=== PATIENT | female | born 1940 | race Caucasian/White ===

== ENCOUNTER → 2016-10-16 | Outpatient (CLI) | payer MEDICARE | LOC: RAD 07:59 | PROVIDERS: ATTEND Physician Assistant | DX: R10.84 Generalized abdominal pain (principal); N28.1 Cyst of kidney, acquired | CPT/HCPCS: 76700; 93976 ==

== ENCOUNTER → 2017-02-04 | Outpatient (CLI) | payer MEDICARE ==
--- NOTE | 2017-02-04 17:06 | WOMENS IMAGING REPORT ---
EXAM DESCRIPTION: BILAT SCREENING MAMMO W/CAD COMPLETED DATE/TIME: 02/04/2017 2:57 pm REASON FOR STUDY: ROUTINE SCREENING; Z12.31 Z12.31 ENCNTR SCREEN MAMMOGRAM FOR MALIGNANT NEOPLASM O F CONSTANTINO COMPARISON: None. TECHNIQUE: Standard craniocaudal and mediolateral oblique views of each breast recorded using digita l acquisition. LIMITATIONS: None. FINDINGS: RIGHT BREAST MASSES: In the deep central right breast, 12 cm from the nipple laterally, a subcentimeter mammograph ic nodule is present for which cone compression views and ultrasound are recommended for followup. CALCIFICATIONS: No new or suspicious calcifications. ARCHITECTURAL DISTORTION: None. DEVELOPING DENSITY: None. ASYMMETRY: None noted. OTHER: No other significant findings. LEFT BREAST MASSES: No suspicious masses. CALCIFICATIONS: No new or suspicious calcifications. ARCHITECTURAL DISTORTION: None. DEVELOPING DENSITY: None. ASYMMETRY: None noted. OTHER: Post therapeutic changes with skin thickening left breast from post radiation change Read with the assistance of CAD. .[facility] - R2 Cenova Version 1.3 .[facility] - R2 Cenova Version 1.3 .[facility] - R2 Cenova Version 2.4 .[facility] - R2 Cenova Version 2.4 .[facility] - R2 Learning Operations Specialist Version 9.2 IMPRESSION: Small well-circumscribed nodule deep right breast for which additional mammographic view s and ultrasound recommended BREAST DENSITY: b. There are scattered areas of fibroglandular density. BIRAD: 0 Incomplete: Needs Additional Imaging Evaluation and/or prior Mammograms for Comparison. RECOMMENDATION: RECOMMENDED FOLLOW-UP: Right breast diagnostic mammograms and ultrasound The patient will be contacted for additional imaging. COMMENT: The patient has been notified of the results by letter per [place] requirements. Additional no tification policies are in place for contacting patient with suspicious or incomplete findings. Quality ID #[id number]: The [employer] recommends an annual screening mammogram for women aged 40 years or over. This facility utilizes a reminder system to ensure that all patients receive reminder letters, and/or direct phone calls for appointments. This includes reminders for routine scr eening mammograms, diagnostic mammograms, or other Breast Imaging Interventions when appropriate. Th is patient will be placed in the appropriate reminder system. The [employer] (ACR) has developed recommendations for screening MRI of the breast s in certain patient populations, to be used in conjunction with mammography. Breast MRI surveillanc e may be appropriate for women with more than 20% lifetime risk of developing breast cancer as deter mined by genetic testing, significant family history of the disease, or history of mantle radiation f or Hodgkins Disease. ACR Practice Guidelines 2008. TECHNICAL DOCUMENTATION: FINDING NUMBER: (1) ASSESSMENT: (1) JOB ID: [id number] [employer]- All Rights Reserved
== END ==
LOC: WI 11:09
PROVIDERS: ATTEND Family Medicine
DX: Z12.31 Encounter for screening mammogram for malignant neoplasm of breast (principal)
CPT/HCPCS: 77067; G0202

== ENCOUNTER 2017-02-24 10:27 | Emergency (ER) | payer MEDICARE ==
--- NOTE | 2017-02-24 10:42 | ER Document Report ---
ED Medical Screen (RME) - General Chief Complaint: Nausea/Vomiting/Diarrhea Stated Complaint: ABDOMINAL PAIN Time Seen by Provider: 02/24/17 10:39 Notes: Patient states that for the last 9 days she has had severe diarrhea. She states for approximately the last 2 years she has had frequent intermittent bouts of diarrhea that she has had to treat with Imodium. She states currently she does not have any Imodium. She states that her family doctor has referred her to a logistics analytics manager. She states the logistics analytics manager wanted to do a colonoscopy but she has not had the money to have it done. Patient states that her stool has also been all-black but she has not seen any blood. She states she does not take Pepto-Bismol. She states that she has been taking iron pills for "years". He states the iron pills have never made her stool looked black. Patient denies any recent antibiotics. Patient denies having a previous cholecystectomy. She is only had radiation on her left breast. She does have a history of uterine cancer approximately 30 years ago for which she had a hysterectomy. TRAVEL OUTSIDE OF THE [place] IN LAST 30 DAYS: No - Related Data Allergies/Adverse Reactions: pentazocine lactate [From [employer]] Allergy (Verified 04/17/14 12:03) dizzy Past Medical History - Past Medical History Cardiac Medical History: Reports: Hx Atrial Fibrillation, Hx Congestive Heart Failure, Hx Hypercholesterolemia, Hx Hypertension Pulmonary Medical History: Reports: Hx Bronchitis, Hx COPD Endocrine Medical History: Reports: Hx Diabetes Mellitus Type 2 Renal/ Medical History: Denies: Hx Peritoneal Dialysis Psychiatric Medical History: Reports: Hx Depression Past Surgical History: Reports: Hx Abdominal Surgery - bladder, Hx Hysterectomy , Hx Tonsillectomy - adenoids - Immunizations Hx Diphtheria, Pertussis, Tetanus Vaccination: Yes
[2017-02-24 11:25] LABS: APPEARANCE,URINE SLIGHTLY-CLOUDY; BILIRUBIN,URINE NEGATIVE (NEGATIVE); GLUCOSE, URINE NEGATIVE (NEGATIVE); KETONES,URINE NEGATIVE (NEGATIVE); LEUKOCYTE ESTERASE,URINE SMALL (NEGATIVE); NITRITE,URINE NEGATIVE (NEGATIVE); PROTEIN,URINE NEGATIVE (NEGATIVE); URINE SPECIFIC GRAVITY 1.026; UROBILINOGEN,URINE NEGATIVE mg/dL (<2.0)
[2017-02-24 11:34] LABS: ALANINE AMINOTRANSFERASE 25 U/L (9-52); ALBUMIN 3.6 g/dL (3.5-5.0); ALKALINE PHOSPHATASE 120 U/L (38-126); ANION GAP 10 (5-19); ASPARTATE AMINO TRANSFERASE 24 U/L (14-36); BILIRUBIN,DIRECT 0.3 mg/dL (0.0-0.4); BILIRUBIN,TOTAL 0.5 mg/dL (0.2-1.3); BLOOD UREA NITROGEN 12 mg/dL (7-20); CALCIUM 9.3 mg/dL (8.4-10.2); CARBON DIOXIDE 25 mmol/L (22-30); CHLORIDE 107 mmol/L (98-107); CREATININE RESULT 0.86 mg/dL (0.52-1.25); GLUCOSE 101 mg/dL (75-110); MAGNESIUM 1.8 mg/dL (1.6-2.3); POTASSIUM 4.7 mmol/L (3.6-5.0); SODIUM 142.4 mmol/L (137-145); TOTAL PROTEIN 6.4 g/dL (6.3-8.2)
[2017-02-24 13:33] LABS: ABSOLUTE EOSINOPHILS # (AUTO) 0.2 10^3/uL (0.0-0.6); ABSOLUTE LYMPHOCYTES (AUTO) 0.9 10^3/uL (0.5-4.7); ABSOLUTE MONOCYTES (AUTO) 0.3 10^3/uL (0.1-1.4); ABSOLUTE NEUT (AUTO) 3.3 10^3/uL (1.7-8.2); BASOPHILS % (AUTO) 0.9 % (0-2); EOSINOPHILS % (AUTO) 3.8 % (0-6); HEMATOCRIT 36.3 % (36.0-47.0); HEMOGLOBIN 12.3 g/dL (12.0-15.5); HGB HCT DIFFERENCE 0.6; LYMPHOCYTES % (AUTO) 19.1 % (13-45); MEAN CORPUSCULAR HEMOGLOBIN 31.9 pg (27.0-33.4); MEAN CORPUSCULAR HGB CONC 33.9 g/dL (32.0-36.0); MEAN CORPUSCULAR VOLUME 94 fl (80-97); MONOCYTES % (AUTO) 6.9 % (3-13); RED BLOOD COUNT 3.86 10^6/uL (3.72-5.28); RED CELL DISTRIBUTION WIDTH 16.3 % (11.5-14.0); SEGMENTED NEUTROPHILS % (AUTO) 69.3 % (42-78); WHITE BLOOD COUNT 4.8 10^3/uL (4.0-10.5)
--- NOTE | 2017-02-24 15:04 | ER Document Report ---
ED GI/ - General Chief Complaint: Nausea/Vomiting/Diarrhea Stated Complaint: ABDOMINAL PAIN Time Seen by Provider: 02/24/17 10:39 Notes: Patient is here because she has been experiencing diarrhea for the past 9 days. She is actually had episodes of diarrhea dating back into last fall, 7 or 8 months ago. Her diarrhea is about 4-5 times a day. No blood has been seen. Does not have any significant abdominal pains. She has noticed some black stools since yesterday. Not taking Pepto-Bismol. Is taking iron, but has not changed the dose or take an extra of the latter. Denies nausea or vomiting. Has not had any fever. Told she had a duodenal ulcer in the past. 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 Patient has seen her primary care provider, Dr. Maher, who has referred her to a electronic installer, but the patient cannot afford the $300 co-pay so she has not seen them to get her colonoscopy done. TRAVEL OUTSIDE OF THE [place] IN LAST 30 DAYS: No - HPI Patient complains to provider of: No: Abdominal pain - Related Data Allergies/Adverse Reactions: pentazocine lactate [From [employer]] Allergy (Verified 02/24/17 10:58) dizzy Past Medical History - Social History Smoking Status: Never Smoker Chew tobacco use (# tins/day): No Frequency of alcohol use: Recovering alcoholic since 1984 Drug Abuse: None Family History: Reviewed & Not Pertinent Patient has suicidal ideation: No Patient has homicidal ideation: No - Past Medical History Cardiac Medical History: Reports: Hx Atrial Fibrillation, Hx Congestive Heart Failure, Hx Hypercholesterolemia, Hx Hypertension Pulmonary Medical History: Reports: Hx Bronchitis, Hx COPD, Other - History of pulmonary embolism for over 5 years ago, treated with warfarin, which has been discontinued. Endocrine Medical History: Reports: Hx Diabetes Mellitus Type 2 GI Medical History: Reports: Hx Ulcer Psychiatric Medical History: Reports: Hx Depression Past Surgical History: Reports: Hx Abdominal Surgery - bladder, Hx Hysterectomy , Hx Tonsillectomy - adenoids - Immunizations Hx Diphtheria, Pertussis, Tetanus Vaccination: Yes Hx Pneumococcal Vaccination: 05/27/15 Review of Systems - Review of Systems Notes: REVIEW OF SYSTEMS: CONSTITUTIONAL : Denies fever. EENT: Denies eye, ear, nose or mouth or throat pain or other symptoms. CARDIOVASCULAR: Denies chest pain. RESPIRATORY: Denies cough, chest congestion, some shortness of breath. GASTROINTESTINAL: Denies abdominal pain or nausea, vomiting. See HPI. GENITOURINARY: Denies difficulty or painful urinating, urinary frequency, blood in urine. MUSCULOSKELETAL: Denies back or neck pain. Denies joint pain or swelling. SKIN: Denies rash or skin lesions. NEUROLOGICAL: Denies LOC or altered mental status. Denies headache. Denies sensory loss or motor deficits. ALL OTHER SYSTEMS REVIEWED AND NEGATIVE. Physical Exam - Vital signs Vitals: Temp Pulse Resp BP Pulse Ox 98.0 F 66 18 124/89 H 96 02/24/17 10:31 02/24/17 10:31 02/24/17 10:02/24/17 10:02/24/17 10:31 Interpretation: Normal. No: Febrile - Notes Notes: PHYSICAL EXAMINATION: GENERAL: Well-appearing, in no acute distress. Anxious. Vital signs are all normal. HEAD: Atraumatic, normocephalic. NECK: Normal range of motion, supple. LUNGS: Breath sounds clear and equal bilaterally. HEART: Regular rate and rhythm without murmurs. ABDOMEN: Soft, nontender. No guarding or rebound. Rectal exam performed, no lesions felt. No hemorrhoids seen. Stool is yellow in color. No masses felt. BACK: No tenderness throughout entire back. EXTREMITIES: Normal range of motion without pain. NEUROLOGICAL: Normal speech, normal gait. Normal sensory, motor, and reflex exams. Awake, alert, and oriented x3. Cranial nerves normal. PSYCH: Normal mood, normal affect. SKIN: Warm, dry, no rashes. Course - Re-evaluation Re-evalutation: 02/24/17 15:37 Patient was unable to obtain a diarrhea stool specimen for us and after a several hour wait, wish to be discharged. While here, the patient's daughter has made her an appointment to be seen for her Endoscope procedures in early March. - Vital Signs Vital signs: Temp Pulse Resp BP Pulse Ox 98.0 F 66 18 124/89 H 96 02/24/17 10:31 02/24/17 10:31 02/24/17 10:31 02/24/17 10:31 02/24/17 10:31 - Laboratory Result Diagrams: 02/24/17 13:22 02/24/17 10:58 Laboratory results interpreted by me: 02/24/17 02/24/17 10:58 13:22 RDW 16.3 H Ur Leukocyte Esterase SMALL H 02/24/17 15:37 Lab work all essentially normal. Discharge - Discharge Clinical Impression: Diarrhea Condition: Stable Disposition: HOME, SELF-CARE Additional Instructions: DIARRHEA, NON-SPECIFIC: Diarrhea means frequent, watery stools. There are many causes. Any problem that keeps the intestinal tract from absorbing water from the stool can lead to diarrhea. A sudden new diarrhea problem is usually caused by a virus, food sensitivity, toxic bacteria, or drugs. In this case, we expect the problem to go away soon. Testing is done only if you seem seriously ill from the diarrhea. If you have chronic diarrhea, or diarrhea that keeps coming back, we need to find out why. Chronic diarrhea can be due to inflammation of the bowels such as Crohn's disease or ulcerative colitis, food sensitivity such as intolerance to lactose or wheat protein, irritable bowel syndrome, and other problems. If your diarrhea is a significant problem but it's not clear why you have it, we' ll refer you to a specialist for further testing. During an episode of diarrhea, drink small amounts (two to six ounces) of clear liquids (soft drinks, sport drinks, herb teas, broth, etc). Take fluids frequently to prevent dehydration. It's usually not a problem to take mild anti- diarrhea medication such as Kaopectate or Pepto-Bismol. As the diarrhea eases, advance to small amounts of bland food (mashed potato, toast) for 24 hours. Call the physician if blood appears in your vomit or stool, if vomiting lasts longer than 24 hours, if the abdominal pain worsens or becomes localized to one area, if you develop high fever, or if you become lightheaded and weak. NORMAL EXAM AND WORKUP: At this time, your examination and workup show no significant abnormality. No significant abnormal physical findings were noted. All laboratory, EKG, and imaging (x-ray, CT scans, ultrasound) studies that were ordered show no significant abnormality. Although your examination and all studies that were ordered showed no significant abnormal finding, there are no examinations and no studies that are 100% accurate. There is always the possibility that some abnormality could exist and not be detected with physical examination or within the limits and capabilities of laboratory and other studies. You should return or follow up as you were instructed on your visit today for further evaluation if your symptoms do not resolve. You should follow-up with the electronic installer or your primary care physician for further care. FOLLOW-UP CARE: If you have been referred to a physician for follow-up care, call the physician s office for an appointment as you were instructed or within the next two days. If you experience worsening or a significant change in your symptoms, notify the physician immediately or return to the Emergency Department at any time for re-evaluation. Referrals: DAVID MAHER MD [Primary Care Provider] - Follow up as needed
[2017-02-24 15:31] VITALS: BP 125/53
== END 2017-02-24 15:31 | disposition home or self-care (01) ==
LOC: ER 10:27
DX: R19.7 Diarrhea, unspecified (principal); R19.5 Other fecal abnormalities; E11.9 Type 2 diabetes mellitus without complications; I10 Essential (primary) hypertension; J44.9 Chronic obstructive pulmonary disease, unspecified; Z79.899 Other long term (current) drug therapy; Z87.11 Personal history of peptic ulcer disease; Z87.19 Personal history of other diseases of the digestive system; Z59.9 Problem related to housing and economic circumstances, unspecified
CPT/HCPCS: 36415; 80053; 81001; 82272; 83735; 85025; 99284

== ENCOUNTER → 2017-03-18 | Outpatient (CLI) | payer MEDICARE ==
--- NOTE | 2017-03-19 08:19 | WOMENS IMAGING REPORT ---
EXAM DESCRIPTION: RIGHT DIAGNOSTIC MAMMO W/CAD; U/S BREAST UNILAT LIMITED COMPLETED DATE/TIME: 03/18/2017 11:13 am; 03/18/2017 12:40 pm REASON FOR STUDY: LUMP IN BREAST; N63; RT BREAST NODULAR DENSITY N63 N63 UNSPECIFIED LUMP IN BREAST COMPARISON: 02/04/2017 bilateral screening mammograms TECHNIQUE: Cone compression craniocaudal and mediolateral oblique images of the breast recorded with digital acquisition. Right whole breast 90 mediolateral views. Right breast ultrasound was also p erformed. LIMITATIONS: None. FINDINGS: BREAST: right MASSES: In the deep right breast laterally, near the chest wall, a well-circumscribed hypoechoic 6 mm nodule is present. No architectural distortion or associated calcifications. CALCIFICATIONS: No new or suspicious calcifications. ARCHITECTURAL DISTORTION: None. DEVELOPING DENSITY: None. ASYMMETRY: None noted. OTHER: No other significant findings. Read with the assistance of CAD. .[facility] - R2 Cenova Version 1.3 .[facility] - R2 Cenova Version 1.3 .[facility] - R2 Cenova Version 2.4 .[facility] [place] - R2 Cenova Version 2.4 .[facility] - R2 Welt Drawer Version 9.2 Right breast ultrasound: Ultrasound of the right breast far laterally demonstrates a hypoechoic well-circumscribed small cyst or fibroadenoma, about 6 mm in diameter. This correlates with the mammographic findings and is a pro bably benign finding. No old mammograms are available for comparison. Six-month follow-up mammogram s and ultrasound recommended. IMPRESSION: Probably benign 6 mm cyst or fibroadenoma and deep right breast laterally near the chest wall, for which six-month follow-up right breast diagnostic mammograms and ultrasound are recommende d BREAST DENSITY: a. The breasts are almost entirely fatty. BIRAD: 3 Probably benign finding. Initial short-interval follow-up suggested. RECOMMENDATION: RECOMMENDED FOLLOW UP: Six-month follow-up right breast diagnostic mammograms and ul trasound recommended SPECIFIC INTERVENTION/IMAGING/CONSULTATION RECOMMENDED:Six-month follow-up right breast diagnostic ma mmograms and ultrasound recommended COMMUNICATION:Patient notified by letter COMMENT: The patient has been notified of the results by letter per MQSA requirements. Additional no tification policies are in place for contacting patient with suspicious or incomplete findings. Quality ID #[id number]: The [employer] recommends an annual screening mammogram for women aged 40 years or over. This facility utilizes a reminder system to ensure that all patients receive reminder letters, and/or direct phone calls for appointments. This includes reminders for routine scr eening mammograms, diagnostic mammograms, or other Breast Imaging Interventions when appropriate. Th is patient will be placed in the appropriate reminder system. The [employer] (ACR) has developed recommendations for screening MRI of the breast s in certain patient populations, to be used in conjunction with mammography. Breast MRI surveillanc e may be appropriate for women with more than 20% lifetime risk of developing breast cancer as deter mined by genetic testing, significant family history of the disease, or history of mantle radiation f or Hodgkins Disease. ACR Practice Guidelines 2008. TECHNICAL DOCUMENTATION: FINDING NUMBER: (1) ASSESSMENT: (1) JOB ID: [id number] [employer]- All Rights Reserved
--- NOTE | 2017-03-23 12:23 | WOMENS IMAGING REPORT ---
EXAM DESCRIPTION: RIGHT DIAGNOSTIC MAMMO W/CAD; U/S BREAST UNILAT LIMITED COMPLETED DATE/TIME: 03/18/2017 11:13 am; 03/18/2017 12:40 pm REASON FOR STUDY: LUMP IN BREAST; N63; RT BREAST NODULAR DENSITY N63 N63 UNSPECIFIED LUMP IN BREAST COMPARISON: 02/04/2017 bilateral screening mammograms TECHNIQUE: Cone compression craniocaudal and mediolateral oblique images of the breast recorded with digital acquisition. Right whole breast 90 mediolateral views. Right breast ultrasound was also p erformed. LIMITATIONS: None. FINDINGS: BREAST: right MASSES: In the deep right breast laterally, near the chest wall, a well-circumscribed hypoechoic 6 mm nodule is present. No architectural distortion or associated calcifications. CALCIFICATIONS: No new or suspicious calcifications. ARCHITECTURAL DISTORTION: None. DEVELOPING DENSITY: None. ASYMMETRY: None noted. OTHER: No other significant findings. Read with the assistance of CAD. .[facility] - R2 Cenova Version 1.3 .[facility] - R2 Cenova Version 1.3 .[facility] - R2 Cenova Version 2.4 .[facility] - R2 Cenova Version 2.4 .[facility] - R2 Dehydrogenation Operator Head Version 9.2 Right breast ultrasound: Ultrasound of the right breast far laterally demonstrates a hypoechoic well-circumscribed small cyst or fibroadenoma, about 6 mm in diameter. This correlates with the mammographic findings and is a pro bably benign finding. No old mammograms are available for comparison. Six-month follow-up mammogram s and ultrasound recommended. IMPRESSION: Probably benign 6 mm cyst or fibroadenoma and deep right breast laterally near the chest wall, for which six-month follow-up right breast diagnostic mammograms and ultrasound are recommende d BREAST DENSITY: a. The breasts are almost entirely fatty. BIRAD: 3 Probably benign finding. Initial short-interval follow-up suggested. RECOMMENDATION: RECOMMENDED FOLLOW UP: Six-month follow-up right breast diagnostic mammograms and ul trasound recommended SPECIFIC INTERVENTION/IMAGING/CONSULTATION RECOMMENDED:Six-month follow-up right breast diagnostic ma mmograms and ultrasound recommended COMMUNICATION:Patient notified by letter COMMENT: The patient has been notified of the results by letter per MQSA requirements. Additional no tification policies are in place for contacting patient with suspicious or incomplete findings. Quality ID #[id number]: The [employer] recommends an annual screening mammogram for women aged 40 years or over. This facility utilizes a reminder system to ensure that all patients receive reminder letters, and/or direct phone calls for appointments. This includes reminders for routine scr eening mammograms, diagnostic mammograms, or other Breast Imaging Interventions when appropriate. Th is patient will be placed in the appropriate reminder system. The [employer] (ACR) has developed recommendations for screening MRI of the breast s in certain patient populations, to be used in conjunction with mammography. Breast MRI surveillanc e may be appropriate for women with more than 20% lifetime risk of developing breast cancer as deter mined by genetic testing, significant family history of the disease, or history of mantle radiation f or Hodgkins Disease. ACR Practice Guidelines 2008. TECHNICAL DOCUMENTATION: FINDING NUMBER: (1) ASSESSMENT: (1) JOB ID: [id number] [employer]- All Rights Reserved
== END ==
LOC: WI 10:59
PROVIDERS: ATTEND Family Medicine
DX: N63 Unspecified lump in breast (principal)
CPT/HCPCS: 76642; G0206

== ENCOUNTER → 2017-09-22 | Outpatient (CLI) | payer MEDICARE ==
--- NOTE | 2017-09-23 18:18 | WOMENS IMAGING REPORT ---
EXAM DESCRIPTION: RIGHT DIAGNOSTIC MAMMO W/CAD; U/S BREAST UNILAT LIMITED COMPLETED DATE/TIME: 09/22/2017 9:44 am; 09/22/2017 9:55 am REASON FOR STUDY: UNSPECIFED LUMP IN R BREAST; N63.31; RT BREAST FOLLOW-UP; N63.31 N63.31 COMPARISON: Diagnostic mammograms and ultrasound 03/18/2017 Screening mammograms 02/04/2017 TECHNIQUE: Standard craniocaudal and mediolateral oblique images of the breast recorded with digital acquisition. Additional right breast cone compression views in the CC and MLO orientations. Additional right breast ultrasound LIMITATIONS: None. FINDINGS: BREAST: Right MASSES: Small well-circumscribed low-density nodule 9 o'clock position right breast measuring about 8 mm in diameter. CALCIFICATIONS: No new or suspicious calcifications. ARCHITECTURAL DISTORTION: None. DEVELOPING DENSITY: None. ASYMMETRY: None noted. OTHER: No other significant findings. Read with the assistance of CAD. .[facility] - R2 Cenova Version 1.3 .[facility] - R2 Cenova Version 1.3 .[facility] - R2 Cenova Version 2.4 .[facility] - R2 Cenova Version 2.4 .[facility] - R2 Coffee Farmer Version 9.2 Right breast ultrasound: Ultrasound of the right lateral breast demonstrates a well-circumscribed hypoechoic nodule in the kumar p 9 to 10 o'clock position measuring about 8 to 9 mm in greatest diameter. This very deep, and just ventral to the pectoralis muscle at ultrasound. This is slightly larger than in February 2017. Ultras ound-guided core biopsy, with post biopsy clip placement and follow-up two-view mammogram is recommen ded. IMPRESSION: Increase in size of small nodule in the right deep breast 9 to 10 o'clock position since 03/18/2017. Ultrasound-guided core biopsy with post biopsy clip placement and follow-up two-view billie mogram recommended. BREAST DENSITY: a. The breasts are almost entirely fatty. BIRAD: 4 Suspicious. Biopsy should be considered. RECOMMENDATION: RECOMMENDED FOLLOW UP: Ultrasound-guided right breast biopsy with post biopsy clip p lacement and follow-up two-view mammogram SPECIFIC INTERVENTION/IMAGING/CONSULTATION RECOMMENDED:As above COMMUNICATION:Patient notified by letter. These results were not directly discussed with the patient at the time of service, I was unavailable, doing an invasive procedure COMMENT: The patient has been notified of the results by letter per MQSA requirements. Additional no tification policies are in place for contacting patient with suspicious or incomplete findings. Quality ID #225: The [employer] recommends an annual screening mammogram for women aged 40 years or over. This facility utilizes a reminder system to ensure that all patients receive reminder letters, and/or direct phone calls for appointments. This includes reminders for routine scr eening mammograms, diagnostic mammograms, or other Breast Imaging Interventions when appropriate. Th is patient will be placed in the appropriate reminder system. The [employer] (ACR) has developed recommendations for screening MRI of the breast s in certain patient populations, to be used in conjunction with mammography. Breast MRI surveillanc e may be appropriate for women with more than 20% lifetime risk of developing breast cancer as deter mined by genetic testing, significant family history of the disease, or history of mantle radiation f or Hodgkins Disease. ACR Practice Guidelines 2008. TECHNICAL DOCUMENTATION: FINDING NUMBER: (1) ASSESSMENT: (1) JOB ID: [id number] [employer]- All Rights Reserved Reading location - IP/workstation name: [facility]
--- NOTE | 2017-09-23 18:18 | WOMENS IMAGING REPORT ---
EXAM DESCRIPTION: RIGHT DIAGNOSTIC MAMMO W/CAD; U/S BREAST UNILAT LIMITED COMPLETED DATE/TIME: 09/22/2017 9:44 am; 09/22/2017 9:55 am REASON FOR STUDY: UNSPECIFED LUMP IN R BREAST; N63.31; RT BREAST FOLLOW-UP; N63.31 N63.31 COMPARISON: Diagnostic mammograms and ultrasound 03/18/2017 Screening mammograms 02/04/2017 TECHNIQUE: Standard craniocaudal and mediolateral oblique images of the breast recorded with digital acquisition. Additional right breast cone compression views in the CC and MLO orientations. Additional right breast ultrasound LIMITATIONS: None. FINDINGS: BREAST: Right MASSES: Small well-circumscribed low-density nodule 9 o'clock position right breast measuring about 8 mm in diameter. CALCIFICATIONS: No new or suspicious calcifications. ARCHITECTURAL DISTORTION: None. DEVELOPING DENSITY: None. ASYMMETRY: None noted. OTHER: No other significant findings. Read with the assistance of CAD. .[facility] - R2 Cenova Version 1.3 .[facility] - R2 Cenova Version 1.[address] .[facility] - R2 Cenova Version 2.4 .[facility]2 Cenova Version 2.4 .[facility] - R2 Worm Picker Version 9.2 Right breast ultrasound: Ultrasound of the right lateral breast demonstrates a well-circumscribed hypoechoic nodule in the kumar p 9 to 10 o'clock position measuring about 8 to 9 mm in greatest diameter. This very deep, and just ventral to the pectoralis muscle at ultrasound. This is slightly larger than in February 2017. Ultras ound-guided core biopsy, with post biopsy clip placement and follow-up two-view mammogram is recommen ded. IMPRESSION: Increase in size of small nodule in the right deep breast 9 to 10 o'clock position since 03/18/2017. Ultrasound-guided core biopsy with post biopsy clip placement and follow-up two-view billie mogram recommended. BREAST DENSITY: a. The breasts are almost entirely fatty. BIRAD: 4 Suspicious. Biopsy should be considered. RECOMMENDATION: RECOMMENDED FOLLOW UP: Ultrasound-guided right breast biopsy with post biopsy clip p lacement and follow-up two-view mammogram SPECIFIC INTERVENTION/IMAGING/CONSULTATION RECOMMENDED:As above COMMUNICATION:Patient notified by letter. These results were not directly discussed with the patient at the time of service, I was unavailable, doing an invasive procedure COMMENT: The patient has been notified of the results by letter per MQSA requirements. Additional no tification policies are in place for contacting patient with suspicious or incomplete findings. Quality ID #[id number]: The [employer] recommends an annual screening mammogram for women aged 40 years or over. This facility utilizes a reminder system to ensure that all patients receive reminder letters, and/or direct phone calls for appointments. This includes reminders for routine scr eening mammograms, diagnostic mammograms, or other Breast Imaging Interventions when appropriate. Th is patient will be placed in the appropriate reminder system. The [employer] (ACR) has developed recommendations for screening MRI of the breast s in certain patient populations, to be used in conjunction with mammography. Breast MRI surveillanc e may be appropriate for women with more than 20% lifetime risk of developing breast cancer as deter mined by genetic testing, significant family history of the disease, or history of mantle radiation f or Hodgkins Disease. ACR Practice Guidelines 2008. TECHNICAL DOCUMENTATION: FINDING NUMBER: (1) ASSESSMENT: (1) JOB ID: [id number] [employer]- All Rights Reserved Reading location - IP/workstation name: [facility]
== END ==
LOC: WI 08:27
PROVIDERS: ATTEND Physician Assistant
DX: N63.31 Unspecified lump in axillary tail of the right breast (principal)
CPT/HCPCS: 76642

== ENCOUNTER 2017-09-24 11:44 | Emergency (ER) | payer MEDICARE ==
[2017-09-24 12:00] VITALS: BP 138/61
[2017-09-24] MEDS ORDERED: ASPIRIN 81 MG TABLET, CHEWABLE PO ONE (12:13)
--- NOTE | 2017-09-24 12:18 | ER Document Report ---
ED Medical Screen (RME) - General Chief Complaint: Chest Pain Stated Complaint: CHEST PAIN,NAUSEA Time Seen by Provider: 09/24/17 12:12 Mode of Arrival: Wheelchair Information source: Patient Notes: 77-year-old female history of hypertension congestive heart failure presents with complaints of chest pain 4 day duration associated with shortness of breath pain down the left arm No previous stress test or heart catheterization I have greeted and performed a rapid initial assessment of this patient. A comprehensive ED assessment and evaluation of the patient, analysis of test results and completion of the medical decision making process will be conducted by additional ED providers. PHYSICAL EXAMINATION: GENERAL: Well-appearing, well-nourished and in no acute distress. HEAD: Atraumatic, normocephalic. EYES: Pupils equal round extraocular movements intact, conjunctiva are normal. ENT: Nares patent NECK: Normal range of motion LUNGS: No respiratory distress Musculoskeletal: Normal range of motion NEUROLOGICAL: Normal speech, normal gait. PSYCH: Normal mood, normal affect. SKIN: Warm, Dry, normal turgor, no rashes or lesions noted. TRAVEL OUTSIDE OF THE [place] IN LAST 30 DAYS: No - Related Data Allergies/Adverse Reactions: pentazocine lactate [From [employer]] Allergy (Verified 09/24/17 12:16) dizzy Past Medical History - Social History Frequency of alcohol use: None Drug Abuse: None - Past Medical History Cardiac Medical History: Reports: Hx Atrial Fibrillation, Hx Congestive Heart Failure, Hx Hypercholesterolemia, Hx Hypertension Pulmonary Medical History: Reports: Hx Bronchitis, Hx COPD Endocrine Medical History: Reports: Hx Diabetes Mellitus Type 2 Renal/ Medical History: Denies: Hx Peritoneal Dialysis GI Medical History: Reports: Hx Ulcer Psychiatric Medical History: Reports: Hx Depression Past Surgical History: Reports: Hx Abdominal Surgery - bladder, Hx Hysterectomy , Hx Tonsillectomy - adenoids - Immunizations Hx Diphtheria, Pertussis, Tetanus Vaccination: Yes Physical Exam - Vital signs Vitals: Temp Pulse Resp BP Pulse Ox 98.5 F 66 14 138/61 H 94 09/24/17 11:59 09/24/17 11:59 09/24/17 11:59 09/24/17 11:59 09/24/17 11:59 Course - Vital Signs Vital signs: Temp Pulse Resp BP Pulse Ox 98.5 F 66 14 138/61 H 94 09/24/17 11:59 09/24/17 11:59 09/24/17 11:59 09/24/17 11:59 09/24/17 11:59
[2017-09-24 12:54] LABS: ABSOLUTE EOSINOPHILS # (AUTO) 0.2 10^3/uL (0.0-0.6); ABSOLUTE LYMPHOCYTES (AUTO) 0.8 10^3/uL (0.5-4.7); ABSOLUTE MONOCYTES (AUTO) 0.3 10^3/uL (0.1-1.4); ABSOLUTE NEUT (AUTO) 4.2 10^3/uL (1.7-8.2); BASOPHILS % (AUTO) 0.4 % (0-2); EOSINOPHILS % (AUTO) 3.2 % (0-6); HEMATOCRIT 39.8 % (36.0-47.0); HEMOGLOBIN 13.4 g/dL (12.0-15.5); LYMPHOCYTES % (AUTO) 14.4 % (13-45); MEAN CORPUSCULAR HEMOGLOBIN 32.4 pg (27.0-33.4); MEAN CORPUSCULAR HGB CONC 33.8 g/dL (32.0-36.0); MEAN CORPUSCULAR VOLUME 96 fl (80-97); MONOCYTES % (AUTO) 4.7 % (3-13); PLATELET COUNT 127 10^3/uL (150-450); RED BLOOD COUNT 4.15 10^6/uL (3.72-5.28); RED CELL DISTRIBUTION WIDTH 15.2 % (11.5-14.0); SEGMENTED NEUTROPHILS % (AUTO) 77.3 % (42-78); TOTAL CELLS COUNTED % (AUTO) 100 %; WHITE BLOOD COUNT 5.5 10^3/uL (4.0-10.5)
--- NOTE | 2017-09-24 13:02 | EKG REPORT ---
SEVERITY:- BORDERLINE ECG - SINUS RHYTHM BORDERLINE T ABNORMALITIES, ANTERIOR LEADS : Confirmed by: Sang Iglesias MD 24-Sep-2017 13:01:37
[2017-09-24 13:11] LABS: ALANINE AMINOTRANSFERASE 21 U/L (9-52); ALKALINE PHOSPHATASE 81 U/L (38-126); ANION GAP 10 (5-19); ASPARTATE AMINO TRANSFERASE 29 U/L (14-36); BILIRUBIN,DIRECT 0.4 mg/dL (0.0-0.4); BILIRUBIN,TOTAL 0.6 mg/dL (0.2-1.3); BLOOD UREA NITROGEN 10 mg/dL (7-20); CALCIUM 9.6 mg/dL (8.4-10.2); CARBON DIOXIDE 24 mmol/L (22-30); CHLORIDE 112 mmol/L (98-107); CREATINE KINASE 40 U/L (30-135); GLUCOSE 131 mg/dL (75-110); POTASSIUM 4.2 mmol/L (3.6-5.0); SODIUM 145.5 mmol/L (137-145); TOTAL PROTEIN 6.7 g/dL (6.3-8.2)
--- NOTE | 2017-09-24 13:18 | RADIOLOGY REPORT (SQ) ---
EXAM DESCRIPTION: CHEST SINGLE VIEW COMPLETED DATE/TIME: 09/24/2017 1:00 pm REASON FOR STUDY: chest pain COMPARISON: 09/03/2015 EXAM PARAMETERS: NUMBER OF VIEWS: One view. TECHNIQUE: Single frontal radiographic view of the chest acquired. RADIATION DOSE: NA LIMITATIONS: Patient body habitus. FINDINGS: LUNGS AND PLEURA: Lungs generally clear. Limited evaluation. MEDIASTINUM AND HILAR STRUCTURES: Stable. HEART AND VASCULAR STRUCTURES: Cardiomegaly stable. No overt CHF. BONES: No acute findings. HARDWARE: None in the chest. OTHER: No other significant finding. IMPRESSION: Somewhat limited filming. Cardiomegaly. Nothing acute. TECHNICAL DOCUMENTATION: JOB ID: [id number] [employer]- All Rights Reserved Reading location - IP/workstation name: [email or web address]
[2017-09-24 13:26] LABS: CREATINE KINASE MB 0.78 ng/mL (<4.55); TROPONIN I < 0.012 ng/mL
--- NOTE | 2017-09-24 15:07 | ER Document Report ---
ED Cardiac - General Chief Complaint: Chest Pain Stated Complaint: CHEST PAIN,NAUSEA Time Seen by Provider: 09/24/17 12:12 Mode of Arrival: Wheelchair Notes: 77-year-old female to the emergency department chief complaint of 4 day history of chest pain. Patient states that she has had on and off chest pain for years. Has angina. Followed by lumber buyer, Dr. Naranjo. States that the pain in her chest is lasted for about 4 days. Intermittent shortness of breath. Previous history of PE as well as DVT. Not on any blood thinners at this time. States that she has been taking full-strength aspirin and it helps. Decided to come here today because the pain was getting worse. TRAVEL OUTSIDE OF THE [place] IN LAST 30 DAYS: No - HPI Patient complains to provider of: Chest pain Chest pain location: Substernal Quality of pain: Mild, Moderate Chest pain radiation location: denies: Left jaw, Left arm, Left shoulder, Right jaw, Right arm, Right shoulder, Back, Neck, None Severity now: None Pain level currently: 0 Cardiac risk factors: Diabetes, Hypertension Associated symptoms: Shortness of breath - Related Data Allergies/Adverse Reactions: pentazocine lactate [From [employer]] Allergy (Verified 09/24/17 12:16) dizzy Past Medical History - General Information source: Patient - Social History Smoking Status: Never Smoker Cigarette use (# per day): No Frequency of alcohol use: None Drug Abuse: None Lives with: Family Family History: Reviewed & Not Pertinent Patient has suicidal ideation: No Patient has homicidal ideation: No - Past Medical History Cardiac Medical History: Reports: Hx Atrial Fibrillation, Hx Congestive Heart Failure, Hx Hypercholesterolemia, Hx Hypertension Pulmonary Medical History: Reports: Hx Bronchitis, Hx COPD Endocrine Medical History: Reports: Hx Diabetes Mellitus Type 2 Renal/ Medical History: Denies: Hx Peritoneal Dialysis GI Medical History: Reports: Hx Ulcer Psychiatric Medical History: Reports: Hx Depression Past Surgical History: Reports: Hx Abdominal Surgery - bladder, Hx Hysterectomy , Hx Tonsillectomy - adenoids - Immunizations Hx Diphtheria, Pertussis, Tetanus Vaccination: Yes Hx Pneumococcal Vaccination: 05/27/15 Review of Systems - Review of Systems Constitutional: No symptoms reported. denies: Fever, Malaise, Weakness EENT: No symptoms reported. denies: Blurred vision, Throat pain, Difficulty swallowing, Mouth pain Cardiovascular: No symptoms reported, Chest pain, Palpitations. denies: Heart racing Respiratory: No symptoms reported, Short of breath. denies: Cough, Hurts to breathe Gastrointestinal: No symptoms reported. denies: Abdominal pain, Diarrhea, Nausea Genitourinary: No symptoms reported Female Genitourinary: No symptoms reported Musculoskeletal: No symptoms reported. denies: Back pain, Gout, Joint pain Skin: No symptoms reported. denies: Dryness, Lumps, Rash Hematologic/Lymphatic: No symptoms reported. denies: Anemia, Blood clots, Easy bleeding, Easy bruising Neurological/Psychological: No symptoms reported. denies: Confusion, Weakness, Numbness Physical Exam - Vital signs Vitals: Temp Pulse Resp BP Pulse Ox 98.5 F 66 14 138/61 H 94 09/24/17 11:59 09/24/17 11:59 09/24/17 11:59 09/24/17 11:59 09/24/17 11:59 Interpretation: Normal - General General appearance: Appears well, Alert - HEENT Head: Normocephalic, Atraumatic Eyes: Normal Pupils: PERRL - Respiratory Respiratory status: No respiratory distress Chest status: Nontender Breath sounds: Normal Chest palpation: Normal - Cardiovascular Rhythm: Regular Heart sounds: Normal auscultation Murmur: No - Abdominal Inspection: Normal Distension: No distension Bowel sounds: Normal Tenderness: Nontender Organomegaly: No organomegaly - Back Back: Normal, Nontender - Extremities General upper extremity: Normal inspection, Nontender, Normal color, Normal ROM , Normal temperature General lower extremity: Normal inspection, Nontender, Normal color, Normal ROM , Normal temperature, Normal weight bearing. No: Jason's sign - Neurological Neuro grossly intact: Yes Cognition: Normal Orientation: AAOx4 Tomi Coma Scale Eye Opening: Spontaneous Tomi Coma Scale Verbal: Oriented [place] Coma Scale Motor: Obeys Commands Tomi Coma Scale Total: 15 Speech: Normal Motor strength normal: LUE, RUE, LLE, RLE Sensory: Normal - Psychological Associated symptoms: Normal affect, Normal mood - Skin Skin Temperature: Warm Skin Moisture: Dry Skin Color: Normal Course - Re-evaluation Re-evalutation: 09/24/17 15:06 Initial labs fairly unremarkable. Chest x-ray fairly unremarkable. With previous history of pulmonary embolism will get CTA of the chest based on this chest pain is been present for 4 days. Also complained of some mild shortness of breath. Patient is not tachycardic or hypoxic at this time but risk factors need to be ruled out. Will more than likely be able to discharge as she has an appointment in a few days with cardiology. Will get second cardiac lab and reassess 09/24/17 17:11 Workup is unremarkable today. CTA of the chest negative. Troponin 2 is negative. Consulted patient's lumber buyer. Wants to see her tomorrow in the clinic. Will DC at this time. - Vital Signs Vital signs: Temp Pulse Resp BP Pulse Ox 98.5 F 66 21 H 138/61 H 91 L 09/24/17 11:59 09/24/17 11:59 09/24/17 16:00 09/24/17 11:59 09/24/17 16:00 - Laboratory Result Diagrams: 09/24/17 12:30 09/24/17 12:30 Laboratory results interpreted by me: 09/24/17 09/24/17 12:30 12:30 RDW 15.2 H Plt Count 127 L Sodium 145.5 H Chloride 112 H Est GFR (Non-Af Amer) 57 L Glucose 131 H - EKG Interpretation by Me EKG shows normal: Sinus rhythm, [place], Intervals, QRS Complexes, ST-T Waves When compared to previous EKG there are: No significant change Discharge - Discharge Clinical Impression: Chest pain Qualifiers: Chest pain type: unspecified Qualified Code(s): R07.9 - Chest pain, unspecified Condition: Good Disposition: HOME, SELF-CARE Instructions: Angina Episode ([facility]), Chest Pain of Unclear Cause ([facility]) Referrals: NIKI MARSHALL PA [Primary Care Provider] - Follow up as needed OLAMIDE NARANJO MD [ACTIVE STAFF] - 09/25/17 8:00 am
--- NOTE | 2017-09-24 16:53 | RADIOLOGY REPORT (SQ) ---
EXAM DESCRIPTION: CTA CHEST COMPLETED DATE/TIME: 09/24/2017 4:39 pm REASON FOR STUDY: 4 days chest pain with previous history of PE COMPARISON: 07/20/2015. TECHNIQUE: CT scan of the chest performed using helical scanning technique with dynamic intravenous contrast injection. Images reviewed with lung, soft tissue and bone windows. Reconstructed coronal and sagittal MPR images reviewed. Additional 3 dimensional post-processing performed to develop Maximal Intensity Projection images (SC P). All images stored on PACS. All CT scanners at this facility use dose modulation, iterative reconstruction, and/or weight based d osing when appropriate to reduce radiation dose to as low as reasonably achievable (ALARA). [facility]: Dose Right [facility]: CareDose [facility]: Dose Right [facility]: Teradose 4D [facility]: [employer] CONTRAST TYPE AND DOSE: contrast/concentration: Isovue 370.00 mg/ml; Total Contrast Delivered: 71.0 ml; Total Saline Delivered: 81.0 ml Contrast bolus optimized for the pulmonary arteries. Not diagnostic for the aorta. RENAL FUNCTION: BUN 10 creatinine 0.94. RADIATION DOSE: CT Rad equipment meets quality standard of care and radiation dose reduction techniq ues were employed. CTDIvol: 9.4 - 15.1 mGy. DLP: 551 mGy-cm. . LIMITATIONS: None. FINDINGS: LUNGS AND PLEURA: No masses, infiltrates, pneumothorax. No pleural effusions, calcificati ons. AORTA AND GREAT VESSELS: No aneurysm. Contrast bolus not optimized for the aorta. HEART: No pericardial effusion. No significant coronary artery calcifications. PULMONARY ARTERIES: No emboli visualized in the main pulmonary arteries or the segmental branches. HILAR AND MEDIASTINAL STRUCTURES: No identified masses or abnormal nodes. HARDWARE: None in the chest. UPPER ABDOMEN: Nodular contour of the liver. Recanalized umbilical vein. Splenomegaly. Limited exam . THYROID AND OTHER SOFT TISSUES: No masses. No adenopathy. BONES: No acute or significant finding. 3D MIPS: Confirm above findings. OTHER: No other significant finding. IMPRESSION: NORMAL CTA OF THE CHEST. NO PULMONARY EMBOLI. FINDINGS IN THE UPPER ABDOMEN CONSISTENT WITH CHRONIC CIRRHOSIS AND PORTAL HYPERTENSION. SIMILAR SAAD EARANCE TO PRIOR STUDY (07/20/2015). COMMENT: Quality ID # [id number]: Final reports with documentation of one or more dose reduction techniques (e.g., Automated exposure control, adjustment of the mA and/or kV according to patient size, use of iterative reconstruction technique) TECHNICAL DOCUMENTATION: JOB ID: [id number] [employer]- All Rights Reserved Reading location - IP/workstation name: [email or web address]
== END 2017-09-24 17:42 | disposition home or self-care (01) ==
LOC: ER 11:44
DX: R07.9 Chest pain, unspecified (principal); E11.9 Type 2 diabetes mellitus without complications; I10 Essential (primary) hypertension; R06.02 Shortness of breath; I48.91 Unspecified atrial fibrillation; I50.9 Heart failure, unspecified; I11.0 Hypertensive heart disease with heart failure; Z90.710 Acquired absence of both cervix and uterus
CPT/HCPCS: 93005; 99285; 36415; 82553; 82550; 85025; 80053; 84484; 71045; 71275; 93010; A9270

== ENCOUNTER → 2018-02-11 | Outpatient (CLI) | payer MEDICARE ==
--- NOTE | 2018-02-11 12:03 | RADIOLOGY REPORT (SQ) ---
EXAM DESCRIPTION: CT ABD/PELVIS WITH IV ORAL COMPLETED DATE/TIME: 02/11/2018 9:43 am REASON FOR STUDY: PERIUMBLICAL PAIN/ CIRRHOSIS R10.33 PERIUMBILICAL PAIN COMPARISON: CT angio chest 09/24/2017, 07/20/2015 Abdominal ultrasound 10/16/2016 TECHNIQUE: CT scan of the abdomen and pelvis performed using helical scanning technique with dynamic intravenous contrast injection. No oral contrast. Images reviewed with lung, soft tissue, and bone windows. Reconstructed coronal and sagittal MPR images reviewed. Delayed images for evaluation of the urinary system also acquired. All images stored on PACS. All CT scanners at this facility use dose modulation, iterative reconstruction, and/or weight based d osing when appropriate to reduce radiation dose to as low as reasonably achievable (ALARA). [facility]: Dose Right [facility]: CareDose [facility]: Dose Right [facility]: Teradose 4D [facility]: [employer] CONTRAST TYPE AND DOSE: contrast/concentration: Isovue 370.00 mg/ml; Total Contrast Delivered: 93.0 ml; Total Saline Delivered: 52.0 ml RENAL FUNCTION: Creatinine 1.3 RADIATION DOSE: CT Rad equipment meets quality standard of care and radiation dose reduction techniq ues were employed. CTDIvol: 17.5 - 19.6 mGy. DLP: 1835 mGy-cm.. LIMITATIONS: None. FINDINGS: LOWER CHEST: Cardiomegaly. Lung bases are clear. LIVER: Nodular contour of the liver from cirrhosis. Recannulized patent umbilical vein with small 12 mm venous varix in the periumbilical region best shown on sagittal image 54, coronal image 31, and a xial image 59. No hemorrhage around the umbilical varices. SPLEEN: 14 cm in length. No focal lesions. PANCREAS: No masses. No significant calcifications. No adjacent inflammation or peripancreatic fluid collections. Pancreatic duct not dilated. GALLBLADDER: No identified stones by CT criteria. No inflammatory changes to suggest cholecystitis. ADRENAL GLANDS: No significant masses or asymmetry. RIGHT KIDNEY AND URETER: No solid masses. Multiple right renal cysts, largest is 2 cm in the right m id-pole kidney. 2 mm right lower pole intrarenal nonobstructive stone. No hydronephrosis or hydrou reter. LEFT KIDNEY AND URETER: No solid masses. No significant calcifications. No hydronephrosis or hydr oureter. AORTA AND VESSELS: No aneurysm. No dissection. Renal arteries, SMA, celiac without stenosis. RETROPERITONEUM: No retroperitoneal adenopathy, hemorrhage or masses. BOWEL AND PERITONEAL CAVITY: Patient drank oral contrast. No CT evidence of bowel obstruction. Ther e are sigmoid colon diverticuli without CT signs of acute diverticulitis. APPENDIX: Patient states post appendectomy. PELVIS: No mass. No free fluid. Normal bladder. Post hysterectomy. ABDOMINAL WALL: No masses. No hernias. BONES: No significant or acute findings. OTHER: No other significant finding. IMPRESSION: Recannulized umbilical vein without CT evidence of thrombosis. Small venous varix at th e umbilicus without thrombosis or acute hemorrhage. Cirrhosis, portal hypertension, splenomegaly. No ascites TECHNICAL DOCUMENTATION: JOB ID: [id number] Quality ID # [id number]: Final reports with documentation of one or more dose reduction techniques (e.g., Au tomated exposure control, adjustment of the mA and/or kV according to patient size, use of iterative reconstruction technique) 2010 [employer]- All Rights Reserved Reading location - IP/workstation name: [facility]
== END ==
LOC: RAD 09:06
PROVIDERS: ATTEND Physician Assistant
DX: K70.30 Alcoholic cirrhosis of liver without ascites (principal); R10.33 Periumbilical pain
CPT/HCPCS: 74177; 82565

== ENCOUNTER 2018-02-16 15:52 | Emergency (ER) | payer MEDICARE ==
[2018-02-16] MEDS ORDERED: ASPIRIN 81 MG TABLET, CHEWABLE PO ONE (17:46)
--- NOTE | 2018-02-16 17:46 | ER Document Report ---
ED Cardiac - General Chief Complaint: Chest Pain Stated Complaint: CHEST PAIN/BLURRED VISION Time Seen by Provider: 02/16/18 17:21 Mode of Arrival: Medic Information source: Patient Notes: This is a 77-year-old female with a history of diabetes, peripheral neuropathy, chronic back pain that presents to the emergency room after having chest pain tonight with some shortness of breath. Patient also states she had difficulty ambulating. She does state that normally she uses a walker and has had a long history of chronic back pain. She states that her ambulation is been getting worse. TRAVEL OUTSIDE OF THE [place] IN LAST 30 DAYS: No - HPI Patient complains to provider of: Chest pain, Shortness of breath Use of: denies: Alcohol, Amphetamines, Bath salts, Caffeine, Cocaine, Decongestants, Other Was the onset of pain: Gradual Is the pain a: Chronic problem Quality of pain: Mild, Dull Chest pain radiation location: denies: Left jaw, Left arm, Left shoulder, Right jaw, Right arm, Right shoulder, Back, Neck, None Severity now: None Severity at worst: Mild Pain level currently: Denies Chest pain precipitating factors: Physical Exertion Cardiac risk factors: Diabetes, Hypertension, Hx CHF Positive cardiac history: Yes Associated symptoms: Lightheaded, Shortness of breath. denies: Anxiety, Cool extremities, Headache, Palpitations Exacerbated by: Denies Relieved by: Nothing Similar symptoms previously: Yes Recently seen / treated by doctor: No - Related Data Allergies/Adverse Reactions: pentazocine lactate [From [facility]] Allergy (Verified 02/16/18 15:54) dizzy Past Medical History - General Information source: Patient - Social History Smoking Status: Never Smoker Cigarette use (# per day): No Chew tobacco use (# tins/day): No Frequency of alcohol use: None Drug Abuse: None Lives with: Family Family History: Reviewed & Not Pertinent Patient has suicidal ideation: No Patient has homicidal ideation: No - Past Medical History Cardiac Medical History: Reports: Hx Atrial Fibrillation, Hx Congestive Heart Failure, Hx Hypercholesterolemia, Hx Hypertension Pulmonary Medical History: Reports: Hx Bronchitis, Hx COPD Endocrine Medical History: Reports: Hx Diabetes Mellitus Type 2 Renal/ Medical History: Denies: Hx Peritoneal Dialysis GI Medical History: Reports: Hx Ulcer Psychiatric Medical History: Reports: Hx Depression Past Surgical History: Reports: Hx Abdominal Surgery - bladder, Hx Hysterectomy , Hx Tonsillectomy - adenoids - Immunizations Hx Diphtheria, Pertussis, Tetanus Vaccination: Yes Hx Pneumococcal Vaccination: 05/27/15 Review of Systems - Review of Systems Constitutional: denies: Chills, Fever EENT: No symptoms reported Cardiovascular: See HPI Respiratory: See HPI Gastrointestinal: No symptoms reported Genitourinary: No symptoms reported Female Genitourinary: No symptoms reported Musculoskeletal: See HPI Skin: No symptoms reported Hematologic/Lymphatic: No symptoms reported Neurological/Psychological: See HPI, Weakness. denies: Seizure, Lost consciousness Physical Exam - Vital signs Vitals: Temp Pulse Resp BP Pulse Ox 97.7 F 88 18 98/57 L 93 02/16/18 16:16 02/16/18 16:16 02/16/18 16:16 02/16/18 16:16 02/16/18 16:16 Notes: Physical exam: GENERAL: A 77-year-old female, alert and oriented 3, no acute distress. He does not have any chest pain currently. HEAD: Atraumatic, normocephalic. EYES: Pupils equal round and reactive to light, extraocular movements intact, sclera anicteric, conjunctiva are normal. ENT: TMs normal, nares patent, oropharynx clear without exudates. Moist mucous membranes. NECK: Normal range of motion, supple without obvious mass or JVD. LUNGS: Breath sounds clear to auscultation bilaterally and equal. No wheezes rales or rhonchi. HEART: Regular rate and rhythm without murmurs, rubs or gallops. ABDOMEN: Soft, normoactive bowel sounds. No tenderness to palpation. No guarding, no rebound. No masses appreciated. Rectal: Perianal area has good sensation, patient is rectal tone. Back: Patient does have lower lumbar tenderness. EXTREMITIES: Normal range of motion, no pitting or edema. No clubbing or cyanosis. NEUROLOGICAL: Cranial nerves II through XII grossly intact. Normal speech, moving all extremities. She does have some weakness to the lower extremities but she does have a history of chronic back pain with ambulatory dysfunction. PSYCH: Normal mood, normal affect. SKIN: Warm, Dry, normal turgor, no rashes or lesions noted. Course - Re-evaluation Re-evalutation: 02/17/18 00:25 I had a long discussion with the patient as well as the family. Her issues today are as follows: First, the chest pain: Patient's event today lasted less than a half an hour. Her EKG was good on evaluation in the ER. She was observed on a monitor for several hours and remained chest pain-free. She had serial cardiac enzymes which were negative. I discussed the case with Dr. Navarro who knows the patient and is willing to see the patient in the office. Second, the chronic back pain: I was not quite sure how new the symptoms were when she initially presented. Thus I had ordered an MRI of the lumbar spine. It did show significant degenerative changes with spinal canal narrowing. Some family members did arrive later on after the MRI and we had a long discussion. It turns out that she was evaluated for surgery 5 years ago in [place] and it was felt that she was too much of a surgical risk. She does have underlying heart disease and that risk would probably be even more today. However, I did recommend having her follow-up with a spine surgeon for evaluation given that there may be other modalities available (i.e. spinal stimulator for pain), etc. she appeared amenable to this. I did give her a number of a neurosurgeon in [place]. Additionally I have discussed the MRI with Dr. Navarro who was going to coordinate a referral and possible physical therapy in the office tomorrow. - Vital Signs Vital signs: Temp Pulse Resp BP Pulse Ox 98.6 F 74 16 114/53 L 95 02/17/18 00:06 02/17/18 00:06 02/17/18 00:06 02/17/18 00:06 02/17/18 00:06 - Laboratory Result Diagrams: 02/16/18 19:00 02/16/18 19:00 Laboratory results interpreted by me: 02/16/18 02/16/18 19:00 19:00 Hgb 11.9 L Hct 35.7 L RDW 15.1 H Plt Count 118 L Seg Neutrophils % 84.6 H Lymphocytes % 8.5 L Sodium 145.6 H Chloride 110 H Carbon Dioxide 19 L Creatinine 1.53 H Est GFR ( Amer) 40 L Est GFR (Non-Af Amer) 33 L Glucose 122 H Creatine Kinase 26 L Total Protein 5.8 L Albumin 3.2 L Discharge - Discharge Clinical Impression: Chest pain, Chronic back pain Condition: Stable Disposition: HOME, SELF-CARE Additional Instructions: The heart tests look good tonight. Your creatinine was a little elevated (this is the kidney test) and we will have to keep an eye on it. I did discuss this with Dr. Navarro. The MRI showed a lot of degenerative disease of the low back which is consistent with your history of bad back pain. It is not clear whether he would be a good surgical candidate at this time. However, I do recommend you follow-up with a neurosurgeon/back surgeon. You can follow-up with Dr. Vineet Smith in [facility]) [phone] Additionally, Dr. Navarro would like to see you in the morning to go over these tests and to coordinate the plan going forward. Return to the ER for any worsening chest pain, any worsening pain or any concerns or getting worse. Referrals: NIKI MARSHALL PA [NO LOCAL MD] - Follow up as needed
--- NOTE | 2018-02-16 18:20 | RADIOLOGY REPORT (SQ) ---
EXAM DESCRIPTION: CHEST SINGLE VIEW COMPLETED DATE/TIME: 02/16/2018 6:10 pm REASON FOR STUDY: cp COMPARISON: 09/24/2017 EXAM PARAMETERS: NUMBER OF VIEWS: One view. TECHNIQUE: Single frontal radiographic view of the chest acquired. RADIATION DOSE: NA LIMITATIONS: None. FINDINGS: LUNGS AND PLEURA: No acute opacities, masses or pneumothorax. No pleural effusion. MEDIASTINUM AND HILAR STRUCTURES: Stable. HEART AND VASCULAR STRUCTURES: Stable cardiac enlargement. BONES: No acute findings. HARDWARE: None in the chest. OTHER: No other significant finding. IMPRESSION: NO ACUTE RADIOGRAPHIC FINDING IN THE CHEST. TECHNICAL DOCUMENTATION: JOB ID: [id number] [place]-72 2010 [employer]- All Rights Reserved Reading location - IP/workstation name: [email or web address]
[2018-02-16 19:12] LABS: ABSOLUTE EOSINOPHILS # (AUTO) 0.1 10^3/uL (0.0-0.6); ABSOLUTE LYMPHOCYTES (AUTO) 0.7 10^3/uL (0.5-4.7); ABSOLUTE MONOCYTES (AUTO) 0.5 10^3/uL (0.1-1.4); ABSOLUTE NEUT (AUTO) 7.2 10^3/uL (1.7-8.2); BASOPHILS % (AUTO) 0.2 % (0-2); EOSINOPHILS % (AUTO) 1.3 % (0-6); HEMATOCRIT 35.7 % (36.0-47.0); HEMOGLOBIN 11.9 g/dL (12.0-15.5); LYMPHOCYTES % (AUTO) 8.5 % (13-45); MEAN CORPUSCULAR HEMOGLOBIN 31.7 pg (27.0-33.4); MEAN CORPUSCULAR HGB CONC 33.3 g/dL (32.0-36.0); MEAN CORPUSCULAR VOLUME 95 fl (80-97); MONOCYTES % (AUTO) 5.4 % (3-13); PLATELET COUNT 118 10^3/uL (150-450); RED BLOOD COUNT 3.74 10^6/uL (3.72-5.28); RED CELL DISTRIBUTION WIDTH 15.1 % (11.5-14.0); SEGMENTED NEUTROPHILS % (AUTO) 84.6 % (42-78); TOTAL CELLS COUNTED % (AUTO) 100 %; WHITE BLOOD COUNT 8.5 10^3/uL (4.0-10.5)
[2018-02-16 19:29] LABS: ALANINE AMINOTRANSFERASE 18 U/L (9-52); ALBUMIN 3.2 g/dL (3.5-5.0); ALKALINE PHOSPHATASE 60 U/L (38-126); ANION GAP 17 (5-19); ASPARTATE AMINO TRANSFERASE 18 U/L (14-36); BILIRUBIN,DIRECT 0.3 mg/dL (0.0-0.4); BILIRUBIN,TOTAL 0.3 mg/dL (0.2-1.3); BLOOD UREA NITROGEN 16 mg/dL (7-20); CALCIUM 9.3 mg/dL (8.4-10.2); CARBON DIOXIDE 19 mmol/L (22-30); CHLORIDE 110 mmol/L (98-107); CREATINE KINASE 26 U/L (30-135); GLUCOSE 122 mg/dL (75-110); POTASSIUM 4.2 mmol/L (3.6-5.0); SODIUM 145.6 mmol/L (137-145); TOTAL PROTEIN 5.8 g/dL (6.3-8.2)
[2018-02-16 19:41] LABS: CREATINE KINASE MB 0.84 ng/mL (<4.55)
[2018-02-16 19:44] LABS: TROPONIN I < 0.012 ng/mL
[2018-02-16] MEDS ORDERED: NORMAL SALINE 500 ML IV ONE (20:46)
--- NOTE | 2018-02-16 22:49 | RADIOLOGY REPORT (SQ) ---
EXAM DESCRIPTION: CT LUMBAR SPINE WITHOUT IV CONTRAST COMPLETED DATE/TME: 02/16/2018 17:48 CLINICAL HISTORY: 77 years, Female, low back pain, gait dysfunction EXAM DESCRIPTION: CLINICAL HISTORY: low back pain, gait dysfunction COMPARISON: None Available. TECHNIQUE: Multiplanar multisequence MR imaging of the lumbar spine was performed without contrast FINDINGS: There are extensive degenerative changes of the bones and multilevel disc height loss. There is grade 1 retrolisthesis of L5 on S1 and grade 1 anterolisthesis of L4 on L5 and grade 1 retrolisthesis of L3 on L4. There is moderate bilateral L3-4 neural foraminal narrowing. There is moderate bilateral L2-3 neural foraminal narrowing. Multilevel anterior disc osteophyte complexes are present. Numerous cysts involve both kidneys. There is clumping of the cauda equina, which is nonspecific, below the level of the conus. No clumping is seen at the level of the conus tip. Detail is limited by motion and technique. At L4-5 there is moderately severe central canal narrowing and severe bilateral lateral recess narrowing. At L2-3 there is mild central canal narrowing and moderate left lateral recess narrowing caused by a broad-based disc bulge and moderate facet joint hypertrophy on the left. At L3-4 there is moderate left and mild to moderate right lateral recess narrowing with moderate bilateral facet joint hypertrophy. Increased STIR signal within the L3 and L4 vertebral bodies is likely degenerative. No other acute abnormality. IMPRESSION: Degenerative changes with stenoses as above. Clumping of the cauda equina nerve roots is nonspecific. Arachnoiditis is possible. Prior hemorrhage is possible. Neoplasm is less likely but not entirely excluded. No contrast was administered and patient motion and technique limit detail.
[2018-02-17 00:08] VITALS: BP 114/53
--- NOTE | 2018-02-17 00:18 | EKG REPORT ---
SEVERITY:- BORDERLINE ECG - SINUS RHYTHM ATRIAL PREMATURE COMPLEX BORDERLINE R WAVE PROGRESSION, ANTERIOR LEADS BORDERLINE PROLONGED QT INTERVAL : Confirmed by: Brittany Aguilar MD 17-Feb-2018 00:18:02
== END 2018-02-17 00:11 | disposition home or self-care (01) ==
LOC: ER 15:52
DX: R07.9 Chest pain, unspecified (principal); G89.29 Other chronic pain; M54.9 Dorsalgia, unspecified; R06.02 Shortness of breath; H53.8 Other visual disturbances; R53.1 Weakness; E11.9 Type 2 diabetes mellitus without complications; Z90.710 Acquired absence of both cervix and uterus; I48.91 Unspecified atrial fibrillation; I50.9 Heart failure, unspecified; E78.00 Pure hypercholesterolemia, unspecified; I11.0 Hypertensive heart disease with heart failure
CPT/HCPCS: 93005; 99285; 96360; 36415; 82553; 82550; 83735; 85025; 82272; 80053; 84484; 72148; 71045; 93010; A9270; J7040

== ENCOUNTER 2018-03-23 19:01 | Emergency (ER) | payer MEDICARE ==
--- NOTE | 2018-03-23 19:42 | ER Document Report ---
ED General - General Chief Complaint: Chest Pain Stated Complaint: FALL Time Seen by Provider: 03/23/18 19:36 TRAVEL OUTSIDE OF THE [place] IN LAST 30 DAYS: No - HPI Notes: 77-year-old female who presents with frequent falls and weakness. For the last month the patient had progressively worsening weakness and falls. She was seen in the emergency department couple weeks ago, underwent MR imaging of the lumbar spine which showed severe degenerative disease, stenosis and some abnormality about the conus. There is no cord compression. She denies any bowel or bladder dysfunction. However, she has had increasing weakness and has difficulty walking secondary to weakness. Yesterday she fell striking her right knee. He just "comes out of nowhere and she drops". Denies any known trauma except as described. No fever, chills or sweats. No other modifying factors, no other associated symptoms, no other provocative or palliative factors. - Related Data Allergies/Adverse Reactions: pentazocine lactate [From [employer] [facility]] Allergy (Verified 03/23/18 19:08) dizzy Past Medical History - Social History Smoking Status: Never Smoker Chew tobacco use (# tins/day): No Frequency of alcohol use: None Drug Abuse: None Family History: Reviewed & Not Pertinent Patient has suicidal ideation: No Patient has homicidal ideation: No - Past Medical History Cardiac Medical History: Reports: Hx Atrial Fibrillation, Hx Congestive Heart Failure, Hx Hypercholesterolemia, Hx Hypertension Pulmonary Medical History: Reports: Hx Bronchitis, Hx COPD Endocrine Medical History: Reports: Hx Diabetes Mellitus Type 2 Renal/ Medical History: Denies: Hx Peritoneal Dialysis GI Medical History: Reports: Hx Ulcer Psychiatric Medical History: Reports: Hx Depression Past Surgical History: Reports: Hx Abdominal Surgery - bladder X 3-4, Hx Hysterectomy, Hx Orthopedic Surgery - right leg, right ankle, bilateral wrists, Hx Thyroid Surgery, Hx Tonsillectomy - adenoids - Immunizations Hx Diphtheria, Pertussis, Tetanus Vaccination: Yes Hx Pneumococcal Vaccination: 05/27/15 Review of Systems - Review of Systems Notes: Review of systems as in the history of present illness, otherwise negative x 10 systems. Physical Exam - Vital signs Vitals: Temp Pulse Resp BP Pulse Ox 97.6 F 67 16 146/79 H 95 03/23/18 19:22 03/23/18 19:22 03/23/18 19:22 03/23/18 19:22 03/23/18 19:22 - Notes Notes: General: Well developed . HEENT: Normocephalic, atraumatic. Pupils equal round reactive to light. No JVD. Chest: No trauma. Respiratory: Good air exchange, normal excursion. Cardiac: Regular rhythm. No murmurs or gallops. Abdomen: Soft, benign. Nondistended. Nontender. Back: No asymmetry or gross abnormality. Motor: Decreased tone and power. Upper extremities are 4+ out of 5 and symmetric. Lower extremities are 4 out of 5 in the hip extensors and 4- out of 5 in the hip flexors . Neurologic: Alert, nonfocal. Cranial nerves II-12 are intact. Sensation intact. Hyperreflexia on the right knees. No clonus. Vascular: Well perfused. Normal peripheral pulses. Skin: No petechiae or purpura. Course - Re-evaluation Re-evalutation: 03/23/18 19:41 Elderly female the after mentioned symptoms. Certainly there is concern over some type of cord process such as myelopathy. Consider severe increase in stenosis. Plan to proceed with metabolic workup to rule out metabolic or infectious cause. Check old records, reassess. 03/23/18 21:43 Labs are reviewed, grossly unremarkable. Normal chemistries and creatinine. Plain films of the knee and chest show no acute abnormality. I have reviewed the patient's records at length. Her last visit talks about essentially the same symptoms. She is scheduled to see neurosurgery, she has an established primary care doctor and appropriate resources in place. There attempted to get a wheelchair but run into some roadblocks and I have admonished him to follow-up again with her primary care doctor in the morning. Otherwise is no indication for emergent admission or transfer. - Vital Signs Vital signs: Temp Pulse Resp BP Pulse Ox 97.6 F 67 20 139/77 H 98 03/23/18 19:22 03/23/18 19:22 03/23/18 21:01 03/23/18 21:00 03/23/18 21:01 - Laboratory Result Diagrams: 03/23/18 18:45 03/23/18 18:45 Laboratory results interpreted by me: 03/23/18 03/23/18 03/23/18 18:45 18:45 20:30 RBC 3.59 L Hgb 11.7 L Hct 34.5 L RDW 15.7 H Plt Count 128 L Seg Neutrophils % 78.4 H Lymphocytes % 12.6 L Sodium 148.0 H Chloride 112 H Est GFR ( Amer) 59 L Est GFR (Non-Af Amer) 48 L Total Protein 5.8 L Albumin 3.2 L Urine Protein 30 H Urine Urobilinogen 2.0 H Ur Leukocyte Esterase TRACE H Discharge - Discharge Clinical Impression: Weakness Condition: Good Disposition: HOME, SELF-CARE Additional Instructions: Follow-up with your primary care doctor tomorrow Referrals: NIKI MARSHALL PA [NO LOCAL MD] - Follow up as needed
[2018-03-23 19:50] LABS: ABSOLUTE EOSINOPHILS # (AUTO) 0.2 10^3/uL (0.0-0.6); ABSOLUTE LYMPHOCYTES (AUTO) 0.8 10^3/uL (0.5-4.7); ABSOLUTE MONOCYTES (AUTO) 0.4 10^3/uL (0.1-1.4); ABSOLUTE NEUT (AUTO) 4.8 10^3/uL (1.7-8.2); BASOPHILS % (AUTO) 0.4 % (0-2); EOSINOPHILS % (AUTO) 2.5 % (0-6); HEMATOCRIT 34.5 % (36.0-47.0); HEMOGLOBIN 11.7 g/dL (12.0-15.5); LYMPHOCYTES % (AUTO) 12.6 % (13-45); MEAN CORPUSCULAR HEMOGLOBIN 32.5 pg (27.0-33.4); MEAN CORPUSCULAR HGB CONC 33.9 g/dL (32.0-36.0); MEAN CORPUSCULAR VOLUME 96 fl (80-97); MONOCYTES % (AUTO) 6.1 % (3-13); PLATELET COUNT 128 10^3/uL (150-450); RED BLOOD COUNT 3.59 10^6/uL (3.72-5.28); RED CELL DISTRIBUTION WIDTH 15.7 % (11.5-14.0); SEGMENTED NEUTROPHILS % (AUTO) 78.4 % (42-78); TOTAL CELLS COUNTED % (AUTO) 100 %; WHITE BLOOD COUNT 6.1 10^3/uL (4.0-10.5)
--- NOTE | 2018-03-23 19:55 | EKG REPORT ---
SEVERITY:- ABNORMAL ECG - SINUS RHYTHM ATRIAL PREMATURE COMPLEX CONSIDER ANTEROSEPTAL INFARCT BORDERLINE PROLONGED QT INTERVAL : Confirmed by: Sang Iglesias MD 23-Mar-2018 19:54:37
[2018-03-23 19:56] LABS: ALANINE AMINOTRANSFERASE 18 U/L (9-52); ALBUMIN 3.2 g/dL (3.5-5.0); ALKALINE PHOSPHATASE 65 U/L (38-126); ANION GAP 11 (5-19); ASPARTATE AMINO TRANSFERASE 19 U/L (14-36); BILIRUBIN,DIRECT 0.3 mg/dL (0.0-0.4); BILIRUBIN,TOTAL 0.3 mg/dL (0.2-1.3); BLOOD UREA NITROGEN 13 mg/dL (7-20); CARBON DIOXIDE 25 mmol/L (22-30); CHLORIDE 112 mmol/L (98-107); GLUCOSE 89 mg/dL (75-110); POTASSIUM 4.1 mmol/L (3.6-5.0); TOTAL PROTEIN 5.8 g/dL (6.3-8.2)
[2018-03-23 20:51] LABS: APPEARANCE,URINE SLIGHTLY-CLOUDY; BILIRUBIN,URINE NEGATIVE (NEGATIVE); COLOR,URINE YELLOW; GLUCOSE, URINE NEGATIVE (NEGATIVE); KETONES,URINE NEGATIVE (NEGATIVE); LEUKOCYTE ESTERASE,URINE TRACE (NEGATIVE); NITRITE,URINE NEGATIVE (NEGATIVE); PROTEIN,URINE 30 mg/dL (NEGATIVE); URINE SPECIFIC GRAVITY 1.023
--- NOTE | 2018-03-23 20:59 | RADIOLOGY REPORT (SQ) ---
EXAM DESCRIPTION: CHEST SINGLE VIEW COMPLETED DATE/TIME: 03/23/2018 8:28 pm REASON FOR STUDY: pAIN COMPARISON: None. EXAM PARAMETERS: NUMBER OF VIEWS: One view. TECHNIQUE: Single frontal radiographic view of the chest acquired. RADIATION DOSE: NA LIMITATIONS: None. FINDINGS: LUNGS AND PLEURA: No opacities, masses or pneumothorax. No pleural effusion. MEDIASTINUM AND HILAR STRUCTURES: No masses. Contour normal. HEART AND VASCULAR STRUCTURES: Cardiomegaly. No pulmonary edema. BONES: No acute findings. HARDWARE: None in the chest. OTHER: No other significant finding. IMPRESSION: Cardiomegaly. No pulmonary edema. TECHNICAL DOCUMENTATION: JOB ID: [id number] [employer]- All Rights Reserved Reading location - IP/workstation name: [email or web address]
--- NOTE | 2018-03-23 21:00 | RADIOLOGY REPORT (SQ) ---
EXAM DESCRIPTION: KNEE RIGHT 3 VIEWS COMPLETED DATE/TIME: 03/23/2018 8:28 pm REASON FOR STUDY: pAIN COMPARISON: None. NUMBER OF VIEWS: Three views. TECHNIQUE: AP, lateral, and sunrise patella radiographic images acquired of the right knee. LIMITATIONS: None. FINDINGS: MINERALIZATION: Normal. BONES: No acute fracture or dislocation. No worrisome bone lesions. JOINT: No effusion. SOFT TISSUES: No soft tissue swelling. No radio-opaque foreign body. OTHER: No other significant finding. IMPRESSION: NEGATIVE STUDY OF THE RIGHT KNEE. NO RADIOGRAPHIC EVIDENCE OF ACUTE INJURY. TECHNICAL DOCUMENTATION: JOB ID: [id number] [employer]- All Rights Reserved Reading location - IP/workstation name: [email or web address]
[2018-03-23 21:49] VITALS: BP 132/97
== END 2018-03-23 21:52 | disposition home or self-care (01) ==
LOC: ER 19:01
DX: R53.1 Weakness (principal); R29.6 Repeated falls; M48.061 Spinal stenosis, lumbar region without neurogenic claudication; I10 Essential (primary) hypertension; J44.9 Chronic obstructive pulmonary disease, unspecified; E11.9 Type 2 diabetes mellitus without complications; Z88.5 Allergy status to narcotic agent
CPT/HCPCS: 36415; 71045; 80053; 81001; 84484; 85025; 93005; 93010; 99285